=== PATIENT | female | born 1965 | race African-American/Black ===

== ENCOUNTER 2017-03-11 08:28 | Emergency (ER) | payer BC ==
[~2017-03-11] VITALS: Ht 167.6 cm; Wt 110.0 kg
[2017-03-11] MEDS ORDERED: SODIUM CHLORIDE 0.9% 500 ML IV ONE (09:38)
[2017-03-11] MEDS ORDERED: LORAZEPAM 1MG TABLET PO ONE (09:45)
[2017-03-11 13:00] VITALS: BP 110/58
== END 2017-03-11 13:54 | disposition home or self-care (01) ==
LOC: ER 08:51
DX: S16.1XXA Strain of muscle, fascia and tendon at neck level, initial encounter (principal); E78.00 Pure hypercholesterolemia, unspecified; Z88.0 Allergy status to penicillin; Z88.2 Allergy status to sulfonamides; X50.0XXA Overexertion from strenuous movement or load, initial encounter; Y93.89 Activity, other specified; Y92.89 Other specified places as the place of occurrence of the external cause; Y99.8 Other external cause status
CPT/HCPCS: 72040; 81025; 93005; 96360; 99284; J7040; Z7610